=== PATIENT | male | born 1995 | race Hispanic/Latino ===

== ENCOUNTER 2018-01-02 19:56 | Emergency (ER) | payer SELFPAY ==
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
--- NOTE | 2018-01-02 20:59 | RAD REPORT ---
EXAM DESCRIPTION: [place] Single View01/02/2018 8:44 pm CLINICAL HISTORY: Chest pain COMPARISON: none FINDINGS: The lungs appear clear of acute infiltrate. The heart is normal size IMPRESSION: No acute abnormalities displayed
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
[2018-01-02] MEDS ORDERED: ACETAMINOPHEN 500 MG TAB ONE (22:01)
== END 2018-01-02 22:10 | disposition home or self-care (01) ==
LOC: ER 19:56
DX: S06.0X9A Concussion with loss of consciousness of unspecified duration, initial encounter (principal); S02.5XXA Fracture of tooth (traumatic), initial encounter for closed fracture; Y09 Assault by unspecified means; Y93.9 Activity, unspecified; Y92.009 Unspecified place in unspecified non-institutional (private) residence as the place of occurrence of the external cause; Z72.0 Tobacco use
CPT/HCPCS: 70450; 70486; 71045; 72125; 76377; 99285

== ENCOUNTER 2025-05-11 08:07 | Emergency (ER) | payer SELFPAY ==
[2025-05-11] MEDS ORDERED: HYDROCODONE/APAP 7.5/325 MG TAB ONE (08:24)
[2025-05-11] MEDS ORDERED: ONDANSETRON 4 MG (ODT) TAB ONE (08:24)
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
--- NOTE | 2025-05-11 08:48 | EDPHYS ---
Physician Documentation [facility] Name: Girma Grant Age: 29 yrs Sex: Male : 1995 Arrival Date: 05/11/2025 Time: 08:07 Bed 14 Private MD: ED Physician Kalyan Sutton HPI: 05/11 08:18 This 29 yrs old Male presents to ER via Unassigned with complaints of Finger sb4 Injury. 08:25 Patient states that he smashed his right distal pinky finger and a door last night and sb4 has had pain ever since. States that he cannot sleep because of the pain. Took some Tylenol this morning without significant relief in symptoms. Has full range of motion. Swelling and tenderness present. No medical history. Historical: - Allergies: 08:20 No Known Allergies; af3 - Immunization history:: Adult Immunizations up to date. - Infectious Disease History:: Denies. - Social history:: Smoking status: Patient reports the use of cigarette tobacco products, smokes one pack cigarettes per day. ROS: 08:25 Constitutional: Negative for fever, chills, and weight loss, sb4 08:25 MS/extremity: Positive for injury or acute deformity, pain, swelling, tenderness, of the right little fingernail, 08:25 All other systems are negative, Exam: 08:25 Constitutional: This is a well developed, well nourished patient who is awake, alert, sb4 and in no acute distress. Head/Face: Normocephalic, atraumatic. Eyes: Extra-ocular motions intact. Periorbital areas with no swelling, redness, or edema. ENT: Mucous membranes moist. Respiratory: No increased work of breathing, no retractions or nasal flaring. 08:25 Musculoskeletal/extremity: Circulation is intact in all extremities. Pulses: are normal with no appreciated deficits, Perfusion: the extremity is normally perfused throughout, Sensation intact. Nails: Subungual hematoma, of the right little fingernail, Vital Signs: 08:17 BP 140 / 80; Pulse 62; Resp 18; Pulse Ox 100% on R/A; Weight 74.84 kg; Height 5 ft. 11 af3 in. ; Pain 9/10; 09:27 BP 122 / 76; Pulse 60; Resp 18; Pulse Ox 100% ; af3 08:17 Body Mass Index 23.01 (74.84 kg, 180.34 cm) af3 08:17 Pain Scale: Adult af3 Procedures: 08:48 Nail trephination performed on right pinky nail with hand-held cautery tool. Drained a sb4 small amount of blood. Patient tolerated well. MDM: 08:13 Medical Screening Exam initiated sb4 08:48 Differential diagnosis: fracture, sprain, contusion. Data reviewed: vital signs, nurses sb4 notes, radiologic studies, and as a result, I will discharge patient. Historians other than the Patient: Spouse/Significant Other: . Counseling: I had a detailed discussion with the patient and/or guardian regarding the historical points, exam findings, and any diagnostic results supporting the discharge/admit diagnosis, radiology results, the need for outpatient follow up, for definitive care, to return to the emergency department if symptoms worsen or persist or if there are any questions or concerns that arise at home. Special discussion: I discussed with the patient the need to follow-up with the PCP/specialist for the noted incidental finding on X-ray/CT scanning. 05/11 08:15 Order name: Hand Right 3 View XRAY; Complete Time: 08:42 sb4 05/11 08:47 Order name: Finger Splint; Complete Time: 09:02 sb4 Administered Medications: 08:27 Drug: Hydrocodone-Acetaminophen PO (7.5 mg-325 mg) 1 tabs PO once Route: PO; af3 09:28 Follow up: Response: No adverse reaction; RASS: Alert and Calm (0) af3 08:27 Drug: Ondansetron PO 4 mg PO once Route: PO; af3 09:28 Follow up: Response: No adverse reaction af3 Disposition: 16:51 I was immediately available on-site in the Emergency Department for consultation in the ms3 care of the patient. Disposition Summary: 05/11/25 08:47 Discharge Ordered Notes: Location: Home sb4 Problem: new sb4 Symptoms: have improved sb4 Condition: Stable sb4 Diagnosis - Subungual hematoma, right pinky nail sb4 Followup: sb4 - With: Private Physician - When: As needed - Reason: Recheck today's complaints, Re-evaluation by your physician Discharge Instructions: - Discharge Summary Sheet sb4 - Subungual Hematoma, [id number] sb4 Forms: - Patient Portal Instructions sb4 - Leadership Thank You Letter sb4 Signatures: Dispatcher [employer] EDMS Kalyan Sutton, DO ORDONEZ ms3 Nannette Bansal PA-C PA-C sb4 Olga Grey, RN RN af3
--- NOTE | 2025-05-11 08:48 | ER ---
Nurse's Notes [facility] Name: Girma Grant Age: 29 yrs Sex: Male : 1995 Arrival Date: 05/11/2025 Time: 08:07 Bed 14 Private MD: Diagnosis: Subungual hematoma, right pinky nail Presentation: 05/11 08:17 Chief complaint: Patient states: smashed right pinky finger in door last night. Tylenol af3 [employer] for pain. Coronavirus screen: At this time, the client does not indicate any symptoms associated with coronavirus-19. Ebola Screen: No symptoms or risks identified at this time. Initial Sepsis Screen: Does the patient meet any 2 criteria? No. Patient's initial sepsis screen is negative. Does the patient have a suspected source of infection? No. Patient's initial sepsis screen is negative. Risk Assessment: Do you want to hurt yourself or someone else? Patient reports no desire to harm self or others. Onset of symptoms was May 10, 2025. 08:17 Method Of Arrival: Ambulatory af3 08:17 Acuity: FREDI 4 af3 Triage Assessment: 08:20 General: Appears in no apparent distress. uncomfortable, well groomed, well developed, af3 Behavior is calm, cooperative, appropriate for age. Pain: Complains of pain in right little fingernail Pain currently is 9 out of 10 on a pain scale. Neuro: Level of Consciousness is awake, alert, obeys commands, Oriented to person, place, time, situation, Appropriate for age. Cardiovascular: Patient's skin is warm and dry. Respiratory: Airway is patent Respiratory effort is even, unlabored, Respiratory pattern is regular, symmetrical. Musculoskeletal: Circulation, motion, and sensation intact. Range of motion: intact in all extremities. Injury Description: Crush injury. Historical: - Allergies: 08:20 No Known Allergies; af3 - Immunization history:: Adult Immunizations up to date. - Infectious Disease History:: Denies. - Social history:: Smoking status: Patient reports the use of cigarette tobacco products, smokes one pack cigarettes per day. Screenin:27 [facility] ED Fall Risk Assessment (Adult) History of falling in the last 3 months, af3 including since admission No falls in past 3 months (0 pts) Confusion or Disorientation No (0 pts) Intoxicated or Sedated No (0 pts) Impaired Gait No (0 pts) Mobility Assist Device Used No (0 pt) Altered Elimination No (0 pt) Score/Fall Risk Level 0 - 2 = Low Risk Oriented to surroundings, Maintained a safe environment, Educated pt \T\ family on fall prevention, incl call for assistance when getting out of bed. Abuse screen: Denies threats or abuse. Denies injuries from another. Nutritional screening: No deficits noted. Tuberculosis screening: No symptoms or risk factors identified. Assessment: 08:27 General: see triage assessment . af3 09:27 Reassessment: Patient appears in no apparent distress at this time. No changes from af3 previously documented assessment. Patient and/or family updated on plan of care and expected duration. Pain level reassessed. Patient states symptoms have improved. Vital Signs: 08:17 BP 140 / 80; Pulse 62; Resp 18; Pulse Ox 100% on R/A; Weight 74.84 kg; Height 5 ft. 11 af3 in. ; Pain 9/10; 09:27 BP 122 / 76; Pulse 60; Resp 18; Pulse Ox 100% ; af3 08:17 Body Mass Index 23.01 (74.84 kg, 180.34 cm) af3 08:17 Pain Scale: Adult af3 ED Course: 08:11 Patient arrived in ED. al6 08:12 Nannette Bansal PA-C is PHCP. sb4 08:12 Kalyan Sutton DO is Attending Physician. sb4 08:17 Olga Grey, LENA is Primary Nurse. af3 08:20 Triage completed. af3 08:20 Arm band placed on. af3 08:27 Patient has correct armband on for positive identification. Bed in low position. Call af3 light in reach. Provided Education on: meds, call light use . 08:27 No provider procedures requiring assistance completed. af3 08:28 Hand Right 3 View XRAY In Process Unspecified. EDMS 09:28 Patient did not have IV access during this emergency room visit. af3 Administered Medications: 08:27 Drug: Hydrocodone-Acetaminophen PO (7.5 mg-325 mg) 1 tabs PO once Route: PO; af3 09:28 Follow up: Response: No adverse reaction; RASS: Alert and Calm (0) af3 08:27 Drug: Ondansetron PO 4 mg PO once Route: PO; af3 09:28 Follow up: Response: No adverse reaction af3 Medication: : VIS not applicable for this client. af3 Outcome: 08:47 Discharge ordered by . sb4 : Discharged to home ambulatory, with family, af3 : Condition: stable : Discharge instructions given to patient, family, Instructed on discharge instructions, follow up and referral plans. medication usage, Demonstrated understanding of instructions, follow-up care, : Patient left the ED. af3 Signatures: Dispatcher [employer] EDNannette Foley, PA-C PA-C sb4 Olga Grey RN RN af3 Mariya Marinelli6
[2025-05-11 09:33] VITALS: O2SAT 100
[2025-05-11 09:44] VITALS: BP 122/76
== END 2025-05-11 09:28 | disposition home or self-care (01) ==
LOC: ER 08:07
DX: S60.051A Contusion of right little finger without damage to nail, initial encounter (principal); W23.0XXA Caught, crushed, jammed, or pinched between moving objects, initial encounter; F17.210 Nicotine dependence, cigarettes, uncomplicated
CPT/HCPCS: 99283; Q0162